=== PATIENT | male | born 1950 | race Caucasian/White ===

== ENCOUNTER 2018-07-24 05:23 | Inpatient (IN) | payer OTHER ==
[2018-07-18 16:07] LABS: BASOPHILS # (AUTO) 0.1 X10'3 (0-0.2); BASOPHILS % (AUTO) 0.9 % (0-1); EOSINOPHILS # (AUTO) 0.2 X10'3 (0-0.9); EOSINOPHILS % (AUTO) 2.5 % (0-6); LYMPHOCYTES # (AUTO) 2.3 X10'3 (1.1-4.8); LYMPHOCYTES % (AUTO) 25.4 % (21-51); MEAN CORPUSCULAR HEMOGLOBIN 30.8 PG (27.0-31.0); MEAN CORPUSCULAR HGB CONC 34.1 % (33.0-36.5); MEAN CORPUSCULAR VOLUME 90.3 FL (78-98); MEAN PLATELET VOLUME 7.4 FL (7.4-10.4); MONOCYTES # (AUTO) 0.9 X10'3 (0-0.9); MONOCYTES % (AUTO) 9.7 % (2-12); NEUTROPHILS # (AUTO) 5.6 X10'3 (1.8-7.7); NEUTROPHILS % (AUTO) 61.5 % (42-75); PRE OP HEMATOCRIT 46.9 % (42.0-52.0); PRE OP PLATELET COUNT 423 X10'3 (140-440); RED BLOOD COUNT 5.19 X10'6 (4.70-6.10); RED CELL DISTRIBUTION WIDTH 13.5 % (11.5-14.5)
[2018-07-18 16:16] LABS: BLOOD UREA NITROGEN 13 MG/DL (7-18); BUN/CREATININE RATIO 12.1 (5.4-32.0); CHLORIDE 103 MMOL/L (99-107); CREATININE 1.07 MG/DL (0.60-1.10); PRE OP ANION GAP 7 (8-16); PRE OP GLUCOSE 102 MG/DL (70-104); PRE OP POTASSIUM 4.1 MMOL/L (3.4-5.1); PRE OP SODIUM 138 MMOL/L (135-145); TOTAL CARBON DIOXIDE 27.6 MMOL/L (24-32); eGFR 69 ML/MIN
[2018-07-18 16:17] LABS: ALBUMIN 3.8 G/DL (3.4-5.0); ALBUMIN/GLOBULIN RATIO 0.8 (1.1-1.5); ALKALINE PHOSPHATASE 85 IU/L (46-116); CALCIUM 8.9 MG/DL (8.5-10.1); PRE OP ALT 60 U/L (30-65); PRE OP AST 45 U/L (10-37); PRE OP BILIRUB, TOTAL 0.6 MG/DL (0.0-1.0); TOTAL PROTEIN 8.5 G/DL (6.4-8.2)
[2018-07-24] VITALS (20 sets, daily range): BP systolic 95–138; BP diastolic 52–98
[~2018-07-24] VITALS: Ht 182.9 cm; Wt 112.8 kg
[~2018-07-24 05:23] MED LIST: IBUP-1986 PO; METO25TA6 PO; ringers solution, lacted 1,000 ML IV SCH
[2018-07-24] MEDS ORDERED: famotidine 20mg tablet PO ONE (05:30)
[2018-07-24] MEDS ORDERED: tranexamic acid inj. 1,000 MG in normal saline 100ml IV soln 90 ML IV ONE (05:30)
[2018-07-24] MEDS ORDERED: metoclopramide 5 mg/ml inj IV ONE (05:30)
[2018-07-24] MEDS ORDERED: cefazolin/dext.iso 2gm/100 ML IV ONE (05:30)
[2018-07-24] MEDS ORDERED: acetaminophen 325mg tablet PO ONE (05:30)
[2018-07-24] MEDS ORDERED: gabapentin 300mg capsule PO ONE (05:30)
[2018-07-24] MEDS ORDERED: vancomycin inj 1,500 MG in normal saline 300ml IV soln IV ONE (05:30)
[2018-07-24] MEDS ORDERED: DOCUMENT DATE & TIME OF BETA-BLOCKER PO ONE (05:30)
[2018-07-24] MEDS ORDERED: oxyCODONE SR 10mg (sust. release) tab PO ONE (05:30)
[2018-07-24] MEDS ORDERED: LIDOcaine 1% (10mg/ml) 2ml vial ONE (05:59)
[2018-07-24] MEDS ORDERED: ceFAZolin 1000mg inj ONE (06:30)
[2018-07-24] MEDS ORDERED: vancomycin 1,000mg inj ONE (06:30)
[2018-07-24] MEDS ORDERED: Thrombin (Bovine) 5,000 unit vial TP ONE (06:48)
[2018-07-24] MEDS ORDERED: ROPIVAcaine inj 200 MG, epiNEPHrine inj 0.6 MG, morphine 10mg/ml inj. 5 MG in normal sa... IU ONE (07:10)
[2018-07-24] MEDS ORDERED: BUPIVAcaine/PF 7.5mg/ml (0.75%) 10ml vial ONE (07:12)
[2018-07-24] MEDS ORDERED: tetracaine 1% (10mg/ml) pres. free inj. ONE (07:12)
[2018-07-24] MEDS ORDERED: cloNIDine hcl/PF 100mcg/ml inj ONE (07:12)
[2018-07-24] MEDS ORDERED: morphine /PF 1mg/ml 10ml inj. ONE (07:15)
[2018-07-24] MEDS ORDERED: MIDAZolam 5mg/5ml vial ONE (07:15)
[2018-07-24] MEDS ORDERED: fentaNYL/PF 50MCG/1 ML 2ML syringe ONE (07:15)
[2018-07-24] MEDS ORDERED: sevoflurane 250ml liquid IH ONE (07:36)
[2018-07-24] MEDS ORDERED: propofol 10mg/ml 20ml vial IV ONE (07:36)
[2018-07-24] MEDS ORDERED: LIDOcaine 2% (20mg/ml) 5ml vial ONE (07:36)
[2018-07-24] MEDS ORDERED: ondansetron/PF 4mg/2ml inj ONE (07:36)
[2018-07-24] MEDS ORDERED: calcium chloride 100 MG/1 ML inj IV ONE (08:26)
[2018-07-24] MEDS ORDERED: diphenhydrAMINE 50 mg/ml inj ONE (08:37)
[2018-07-24] MEDS ORDERED: ePHEDrine 50MG/ML INJ. ONE (08:37)
[2018-07-24] MEDS ORDERED: ROPIVAcaine 0.5% (5mg/ml) 30ml vial ONE (09:43)
[2018-07-24] MEDS ORDERED: dexamethasone sod phosphate 4mg/ml inj. ONE (09:46)
[2018-07-24] MEDS ORDERED: naloxone 2mg/2ml inj 2 MG in normal saline 500ml IV soln 500 ML IV PRN (10:13)
[2018-07-24] MEDS ORDERED: ringers solution, lacted 1,000 ML IV SCH (10:13)
[2018-07-24] MEDS ORDERED: ondansetron/PF 4mg/2ml inj IV PRN ×3 (10:15→10:20)
[2018-07-24] MEDS ORDERED: morphine 4 MG/ML inj SYRINge IV PRN ×2 (10:15)
[2018-07-24] MEDS ORDERED: proCHLORperazine 10 MG/2 ml inj IV PRN (10:15)
[2018-07-24] MEDS ORDERED: diphenhydrAMINE 50 mg/ml inj IV PRN (10:15)
[2018-07-24] MEDS ORDERED: meperidine/PF 25mg/ml syringe IV PRN ×3 (10:15)
[2018-07-24] MEDS ORDERED: HYDROmorphone 1 mg/ml syringe IV PRN ×2 (10:20)
[2018-07-24] MEDS ORDERED: magnesium hydroxide 30ml (MOM) UD suspension PO PRN (10:20)
[2018-07-24] MEDS ORDERED: tranexamic acid inj. 1,130 MG in normal saline 100ml IV soln 100 ML IV ONE ×2 (10:20→13:30)
[2018-07-24] MEDS ORDERED: diphenhydrAMINE 25mg capsule PO PRN ×2 (10:20)
[2018-07-24] MEDS ORDERED: acetaminophen 325mg tablet PO PRN (10:20)
[2018-07-24] MEDS ORDERED: bisacodyl 10mg suppository rectal RC PRN (10:20)
[2018-07-24] MEDS: potassium cl 20mEq in 1/2 NS 1,000 ML IV SCH ×2 (13:05→18:18)
[2018-07-24] MEDS: gabapentin 300mg capsule PO SCH ×2 (13:06→21:24)
[2018-07-24] MEDS: ceFAZolin 1GM/D5W- ADD-VANTAGE 50 ML IV SCH (15:32)
[2018-07-24] MEDS: acetaminophen 325mg tablet PO SCH ×2 (15:34→20:05)
[2018-07-24] MEDS: oxyCODONE IR 5mg (immed. release) tablet PO PRN ×2 (15:35→20:04)
[2018-07-24] MEDS ORDERED: vancomycin/NS 1 GM ADD-VANTAGE 250 ML IV SCH (20:00)
[2018-07-24] MEDS: metoprolol tartrate 25mg tablet PO SCH (20:06)
[2018-07-24] MEDS: sennosides 8.6mg tablet PO SCH (21:25)
[2018-07-25] VITALS (7 sets, daily range): BP systolic 115–146; BP diastolic 50–80
[2018-07-25] MEDS: ceFAZolin 1GM/D5W- ADD-VANTAGE 50 ML IV SCH (00:38)
[2018-07-25] MEDS: potassium cl 20mEq in 1/2 NS 1,000 ML IV SCH ×3 (00:42→16:13)
[2018-07-25] MEDS: oxyCODONE IR 5mg (immed. release) tablet PO PRN ×5 (02:47→21:58)
[2018-07-25] MEDS: acetaminophen 325mg tablet PO SCH ×4 (02:48→20:03)
[2018-07-25 06:02] LABS: BASOPHILS % (AUTO) 0.3 % (0-1); EOSINOPHILS # (AUTO) 0.2 X10'3 (0-0.9); EOSINOPHILS % (AUTO) 1.7 % (0-6); HEMATOCRIT 35.5 % (42.0-52.0); HEMOGLOBIN 11.9 g/dl (14.0-17.9); LYMPHOCYTES # (AUTO) 1.6 X10'3 (1.1-4.8); LYMPHOCYTES % (AUTO) 14.2 % (21-51); MEAN CORPUSCULAR HEMOGLOBIN 30.7 PG (27.0-31.0); MEAN CORPUSCULAR HGB CONC 33.6 % (33.0-36.5); MEAN CORPUSCULAR VOLUME 91.4 FL (78-98); MEAN PLATELET VOLUME 7.5 FL (7.4-10.4); MONOCYTES # (AUTO) 1.3 X10'3 (0-0.9); MONOCYTES % (AUTO) 11.4 % (2-12); NEUTROPHILS # (AUTO) 8.2 X10'3 (1.8-7.7); NEUTROPHILS % (AUTO) 72.4 % (42-75); PLATELET COUNT 316 X10'3 (140-440); RED BLOOD COUNT 3.88 X10'6 (4.70-6.10); WHITE BLOOD COUNT 11.3 X10'3 (4.5-11.0)
[2018-07-25 06:21] LABS: ANION GAP 8 (8-16); CHLORIDE 103 MMOL/L (99-107); POTASSIUM 4.2 MMOL/L (3.5-5.1); SODIUM 137 MMOL/L (135-145); TOTAL CARBON DIOXIDE 26.2 MMOL/L (24-32)
[2018-07-25] MEDS: metoprolol tartrate 25mg tablet PO SCH ×2 (08:33→20:04)
[2018-07-25] MEDS: gabapentin 300mg capsule PO SCH ×3 (08:33→20:03)
[2018-07-25] MEDS: enoxaparin 40mg/0.4ml syringe SQ SCH (08:40)
[2018-07-25] MEDS ORDERED: LORazepam 2 mg/ml vial IV STA (10:43)
[2018-07-25] MEDS: celeCOXIB 100mg capsule PO SCH (20:01)
[2018-07-25] MEDS: sennosides 8.6mg tablet PO SCH (20:03)
[2018-07-26] MEDS: oxyCODONE IR 5mg (immed. release) tablet PO PRN ×5 (02:02→20:47)
[2018-07-26] MEDS: acetaminophen 325mg tablet PO SCH ×2 (02:14→08:02)
[2018-07-26] MEDS: potassium cl 20mEq in 1/2 NS 1,000 ML IV SCH (02:18)
[2018-07-26 06:00] VITALS: BP_SYST 106; BP_SYST 110; BP_DIAS 58; BP_DIAS 72
[2018-07-26] MEDS: gabapentin 300mg capsule PO SCH ×3 (08:02→20:46)
[2018-07-26] MEDS: celeCOXIB 100mg capsule PO SCH ×2 (08:02→20:46)
[2018-07-26] MEDS: metoprolol tartrate 25mg tablet PO SCH ×2 (08:02→20:46)
[2018-07-26] MEDS: enoxaparin 40mg/0.4ml syringe SQ SCH (08:03)
[2018-07-26 09:18] LABS: BASOPHILS # (AUTO) 0.1 X10'3 (0-0.2); BASOPHILS % (AUTO) 0.7 % (0-1); EOSINOPHILS # (AUTO) 0.3 X10'3 (0-0.9); EOSINOPHILS % (AUTO) 2.9 % (0-6); HEMATOCRIT 37.6 % (42.0-52.0); HEMOGLOBIN 12.6 g/dl (14.0-17.9); LYMPHOCYTES # (AUTO) 1.7 X10'3 (1.1-4.8); LYMPHOCYTES % (AUTO) 15.2 % (21-51); MEAN CORPUSCULAR HEMOGLOBIN 30.7 PG (27.0-31.0); MEAN CORPUSCULAR HGB CONC 33.4 % (33.0-36.5); MEAN CORPUSCULAR VOLUME 91.9 FL (78-98); MEAN PLATELET VOLUME 7.9 FL (7.4-10.4); MONOCYTES # (AUTO) 1.4 X10'3 (0-0.9); MONOCYTES % (AUTO) 12.2 % (2-12); NEUTROPHILS # (AUTO) 7.9 X10'3 (1.8-7.7); PLATELET COUNT 354 X10'3 (140-440); RED BLOOD COUNT 4.09 X10'6 (4.70-6.10); RED CELL DISTRIBUTION WIDTH 13.6 % (11.5-14.5); WHITE BLOOD COUNT 11.5 X10'3 (4.5-11.0)
[2018-07-26 10:00] VITALS: BP 110/58
[2018-07-26] MEDS ORDERED: acetaminophen 325mg tablet PO PRN (10:20)
[2018-07-26 18:00] VITALS: BP 139/71
[2018-07-26] MEDS: sennosides 8.6mg tablet PO SCH (20:46)
[2018-07-26 22:00] VITALS: BP 133/77
[2018-07-27] MEDS: oxyCODONE IR 5mg (immed. release) tablet PO PRN ×3 (01:27→10:31)
[2018-07-27 05:25] LABS: BASOPHILS # (AUTO) 0.1 X10'3 (0-0.2); BASOPHILS % (AUTO) 0.8 % (0-1); EOSINOPHILS # (AUTO) 0.4 X10'3 (0-0.9); EOSINOPHILS % (AUTO) 4.5 % (0-6); HEMATOCRIT 34.2 % (42.0-52.0); HEMOGLOBIN 11.7 g/dl (14.0-17.9); LYMPHOCYTES # (AUTO) 1.8 X10'3 (1.1-4.8); LYMPHOCYTES % (AUTO) 18.5 % (21-51); MEAN CORPUSCULAR HEMOGLOBIN 31.4 PG (27.0-31.0); MEAN CORPUSCULAR HGB CONC 34.2 % (33.0-36.5); MEAN CORPUSCULAR VOLUME 91.7 FL (78-98); MEAN PLATELET VOLUME 7.6 FL (7.4-10.4); MONOCYTES # (AUTO) 1.2 X10'3 (0-0.9); MONOCYTES % (AUTO) 12.7 % (2-12); NEUTROPHILS # (AUTO) 6.1 X10'3 (1.8-7.7); NEUTROPHILS % (AUTO) 63.5 % (42-75); PLATELET COUNT 352 X10'3 (140-440); RED BLOOD COUNT 3.73 X10'6 (4.70-6.10); RED CELL DISTRIBUTION WIDTH 13.1 % (11.5-14.5); WHITE BLOOD COUNT 9.6 X10'3 (4.5-11.0)
[2018-07-27 06:00] VITALS: BP 125/66
[2018-07-27] MEDS: metoprolol tartrate 25mg tablet PO SCH (07:53)
[2018-07-27] MEDS: celeCOXIB 100mg capsule PO SCH (07:53)
[2018-07-27] MEDS: gabapentin 300mg capsule PO SCH (07:53)
[2018-07-27] MEDS: enoxaparin 40mg/0.4ml syringe SQ SCH (07:54)
[2018-07-27 10:00] VITALS: BP 101/67
== END 2018-07-27 10:38 | disposition home or self-care (01) | DRG 470 ==
LOC: PAS IN 05:23 → EDSTATUS 07:30 → ORTHO 4S 11:45
PROVIDERS: ADMIT Orthopaedic Surgery; ATTEND Orthopaedic Surgery
PROC: 3E0T3BZ Introduction of Anesthetic Agent into Peripheral Nerves and Plexi, Percutaneous Approach (ICD-10-PCS; 2018-07-24)
PROC: 0SRC069 Replacement of Right Knee Joint with Oxidized Zirconium on Polyethylene Synthetic Substitute, Cemented, Open Approach (ICD-10-PCS; principal; 2018-07-24 07:36)
DX: M17.11 Unilateral primary osteoarthritis, right knee (principal); D62 Acute posthemorrhagic anemia; F41.9 Anxiety disorder, unspecified; I25.10 Atherosclerotic heart disease of native coronary artery without angina pectoris; I95.9 Hypotension, unspecified
CPT/HCPCS: 36415; 80051; 80053; 85025; 87070; 97110; 97116; 97162; 97530; A6455; A7000; C1713; C1758; C1776; G0378; J0690; J0735; J1100; J1200; J1650; J2001; J2250; J2274; J2405; J2704; J2765; J2795; J3010; J3370; J3490; J7030; J7120